=== PATIENT | female | born 1990 | race African-American/Black ===

== ENCOUNTER → 2017-11-18 | Outpatient (CLI) | payer MEDICAID | LOC: COL.LAB 11:35 | DX: O28.8 Other abnormal findings on antenatal screening of mother (principal); R76.8 Other specified abnormal immunological findings in serum; Z3A.11 11 weeks gestation of pregnancy ==

== ENCOUNTER → 2018-03-20 | Outpatient (CLI) | payer MEDICAID | LOC: SUN.DIA 09:49 | DX: O24.419 Gestational diabetes mellitus in pregnancy, unspecified control (principal); Z3A.30 30 weeks gestation of pregnancy; Z71.3 Dietary counseling and surveillance | CPT/HCPCS: G0108 ==

== ENCOUNTER → 2018-04-13 | Outpatient (CLI) | payer MEDICAID | LOC: SUN.DIA 09:27 | DX: O24.419 Gestational diabetes mellitus in pregnancy, unspecified control (principal); Z3A.34 34 weeks gestation of pregnancy | CPT/HCPCS: G0108 ==

== ENCOUNTER → 2018-04-21 | Outpatient (CLI) | payer MEDICAID | LOC: SUN.DIA 10:23 | DX: O24.419 Gestational diabetes mellitus in pregnancy, unspecified control (principal); Z3A.35 35 weeks gestation of pregnancy | CPT/HCPCS: G0108 ==

== ENCOUNTER 2018-05-07 07:06 | Outpatient (CLI) | payer MEDICAID ==
[~2018-05-07] VITALS: Ht 165.1 cm; Wt 95.0 kg
[2018-05-07 06:34] VITALS: BP 101/63; PULSE 93; TEMP 98.3
[2018-05-07] MEDS ORDERED: NATURAL IRON65 MG (07:28)
[2018-05-07] MEDS ORDERED: MAKENA250 MG/1 M IM (07:28)
[2018-05-07] MEDS ORDERED: TUMS500 MG (07:28)
[2018-05-07] MEDS ORDERED: PRENATAL (07:28)
[2018-05-07 08:00] VITALS: BP 101/63; PULSE 93; TEMP 98.3
[2018-05-07 10:23] VITALS: BP 90/53; PULSE 98
== END 2018-05-07 10:35 | disposition home or self-care (01) ==
LOC: LDRO 07:06
DX: Z87.59 Personal history of other complications of pregnancy, childbirth and the puerperium (principal); Z3A.36 36 weeks gestation of pregnancy

== ENCOUNTER 2018-05-14 18:40 | Outpatient (CLI) | payer MEDICAID ==
[~2018-05-14] VITALS: Ht 167.6 cm; Wt 93.6 kg
[~2018-05-14 18:40] MED LIST: MAKENA250 MG/1 M IM; NATURAL IRON65 MG; PRENATAL; TUMS500 MG
[2018-05-14] MEDS ORDERED: TYLENOL 500MG500 MG PO (19:06)
[2018-05-14 19:45] VITALS: BP 109/65; PULSE 90
[2018-05-14 20:45] VITALS: BP 115/71; PULSE 83
[2018-05-14 21:21] VITALS: BP 110/56; PULSE 88
== END 2018-05-14 21:15 | disposition home or self-care (01) ==
LOC: LDRO 18:40
DX: O47.1 False labor at or after 37 completed weeks of gestation (principal); Z3A.37 37 weeks gestation of pregnancy; O24.419 Gestational diabetes mellitus in pregnancy, unspecified control; Z87.51 Personal history of pre-term labor; Z87.59 Personal history of other complications of pregnancy, childbirth and the puerperium
CPT/HCPCS: J7120

== ENCOUNTER 2018-05-22 09:57 | Inpatient (IN) | payer MEDICAID ==
[~2018-05-22] VITALS: Ht 167.6 cm; Wt 94.5 kg
[2018-05-22] VITALS (29 sets, daily range): BP systolic 94–120; BP diastolic 49–78; PULSE 68–107; TEMP 98.1–98.7
[~2018-05-22 09:57] MED LIST changes: +TYLENOL 500MG500 MG PO
[2018-05-22 11:30] LABS: HEMOGLOBIN 10.5 g/dl (12.5-16.0); MEAN CELL VOLUME 73 fl (80.0-100.0); MEAN CORPUSCULAR HEMOGLOBIN 23 pg (27.0-31.0); MEAN CORPUSCULAR HGB CONC 31 g/dl (33.0-37.0); MEAN PLATELET VOLUME 10.3 fl (7.4-10.4); PLATELET COUNT 185 K/mm3 (130-400); RED BLOOD COUNT 4.57 M/mm3 (4.10-5.30); REDCELL DISTRIBUTION WIDTH-CV 18.9 % (11.5-14.5)
[2018-05-22 11:32] LABS: HEMATOCRIT 33.4 % (37.0-47.0)
[2018-05-22 11:48] LABS: ANISOCYTOSIS 2+; BAND 4 % (0-10); EOSINOPHIL 1 % (0-4); LYMPHOCYTE 21 % (20.0-51.0); METAMYELOCYTE 2 % (0-0); NEUTROPHILS 67 % (42.0-75.2); PLATELET ESTIMATE NORMAL (NORMAL)
[2018-05-23 07:30] VITALS: BP 86/52; PULSE 93; TEMP 98.4
[2018-05-23 16:45] VITALS: BP 98/61; PULSE 83; TEMP 97.6
[2018-05-23 21:00] VITALS: BP 98/51; PULSE 88; TEMP 97.5
[2018-05-24 08:30] VITALS: BP 102/57; PULSE 79; TEMP 98.5
[2018-05-24] MEDS ORDERED: MOTRIN 800800 MG/TAB PO (09:51)
[2018-05-24] MEDS ORDERED: PERCOCET 325 MG1 TA2 PO (09:52)
[2018-05-24 16:19] VITALS: BP 104/55; PULSE 75; TEMP 98.6
== END 2018-05-24 21:15 | disposition home or self-care (01) | DRG 775 ==
LOC: LDRO 09:57 → LDR 10:40 → OB 17:47
PROVIDERS: Obstetrics & Gynecology
PROC: 10E0XZZ Delivery of Products of Conception, External Approach (ICD-10-PCS; principal; 2018-05-22)
PROC: 0KQM0ZZ Repair Perineum Muscle, Open Approach (ICD-10-PCS; 2018-05-22)
DX: O24.420 Gestational diabetes mellitus in childbirth, diet controlled (principal); O34.33 Maternal care for cervical incompetence, third trimester; O36.0930 Maternal care for other rhesus isoimmunization, third trimester, not applicable or unspecified; Z3A.38 38 weeks gestation of pregnancy; Z37.0 Single live birth; O70.1 Second degree perineal laceration during delivery
CPT/HCPCS: J2210; J2590; J2795; J7120